=== PATIENT | male | born 1990 | race Two or more races ===

== ENCOUNTER 2017-12-14 08:38 | Inpatient (IN) | payer MEDICAID ==
[~2017-12-14] VITALS: Ht 162.6 cm; Wt 61.1 kg
[~2017-12-14 08:38] MED LIST: AML5T PO; ASPI81CH43 PO; HYD25T PO; LABE200T18 PO; OME20GT PO; SEVE800T PO; WARF2TAB55 PO
[2017-12-14] MEDS ORDERED: ONDANSETRON HCL 4 MG/2 ML VIAL IV ONE ×2 (09:30→10:15)
[2017-12-14] MEDS ORDERED: cloNIDine HCL 0.1 MG TAB PO ONE (09:30)
[2017-12-14 09:40] LABS: Urine Bacteria NONE SEEN /hpf (None Seen); Urine Blood 1+ /uL (Negative); Urine WBC 1 /hpf (0 - 3)
[2017-12-14 09:41] LABS: Basophils # (auto) 0.1 uL; Basophils % (auto) 0.8 % (0.0-2.0); Eosinophils # (auto) 0.1 uL; Eosinophils % (auto) 1.2 % (0.0-7.0); Hematocrit 45.6 % (41.0-53.0); Hemoglobin 15.2 g/dL (13.5-17.5); Lymphocytes # (auto) 1.8 uL; Lymphocytes % (auto) 17.1 % (10.0-50.0); Mean Corpuscular Hgb Conc. 33.4 g/dL (32.0-36.0); Monocytes # (auto) 0.6 uL; Monocytes % (auto) 5.6 % (0.0-12.0); Neutrophils % (auto) 75.3 % (37.0-80.0); Nucleated Red Blood Cells % 0.1 %; Platelet Count (auto) 174 10^3/uL (140-450); Red Blood Cells 5.24 10^6/uL (4.5-5.90); Red Cell Distribution Width 14.7 % (11.8-14.3); White Blood Cell 10.6 10^3/uL (4.4-10.8)
[2017-12-14] MEDS: PANTOPRAZOLE 40 MG/10 ML VIAL IV STA ×2 (09:43→11:08)
[2017-12-14 10:02] LABS: BUN/Creatinine Ratio 13.5; Bilirubin, Total 0.4 mg/dL (0.2-1.0); Calcium 7.9 mg/dL (8.5-10.1); Potassium 4.4 mmol/L (3.5-5.1); Total Protein 6.6 g/dL (6.4-8.2)
[2017-12-14 10:14] LABS: INR 0.93 (0.9-1.15); Partial Thromboplastin Time 27.1 sec (22.64-33.71); Prothrombin Time 10.1 sec (9.37-12.3)
[2017-12-14] MEDS ORDERED: MORPHINE SULFATE 4 MG/ML SYR/VIAL IV ONE (10:15)
[2017-12-14 10:26] LABS: Magnesium 2.2 mg/dL (1.6-2.6)
[2017-12-14] MEDS ORDERED: hydrALAZINE HCL 20 MG/ML VL IV ONE (10:30)
[2017-12-14] MEDS ORDERED: OMEP20CA74 PO (10:47)
[2017-12-14] MEDS ORDERED: ATO40T PO (10:47)
[2017-12-14] MEDS ORDERED: CALCTAB25 PO (10:47)
[2017-12-14] MEDS ORDERED: CAR125T PO (10:47)
[2017-12-14] MEDS ORDERED: WARF4TAB33 PO (10:47)
[2017-12-14] MEDS ORDERED: MORPHINE SULFATE 4 MG/ML SYR/VIAL IV PRN (11:00)
[2017-12-14] MEDS ORDERED: cloNIDine HCL 0.1 MG TAB PO PRN (11:00)
[2017-12-14] MEDS ORDERED: hydrALAZINE HCL 20 MG/ML VL IV PRN (11:00)
[2017-12-14] MEDS ORDERED: PANTOPRAZOLE 40 MG/10 ML VIAL IV ONE (11:30)
[2017-12-14] MEDS ORDERED: CALCIUM W/VIT D (600MG/400IU) TAB PO ONE (11:30)
[2017-12-14] MEDS ORDERED: CARVEDILOL 12.5 MG TAB PO ONE (11:30)
[2017-12-14] MEDS: LABETALOL HCL 200 MG TAB PO SCH ×2 (12:30→22:17)
[2017-12-14] MEDS: ONDANSETRON HCL 4 MG/2 ML VIAL IV PRN (14:43)
[2017-12-14] MEDS ORDERED: WARFARIN SODIUM 2.5 MG TAB PO ONE (17:00)
[2017-12-14 17:12] VITALS: BP 149/79
[2017-12-14] MEDS: ACETAMINOPHEN 500 MG TAB PO PRN (18:07)
[2017-12-14 21:31] VITALS: BP 146/82
[2017-12-14] MEDS: ATORVASTATIN 20 MG TAB PO SCH (22:16)
[2017-12-14] MEDS: PANTOPRAZOLE 40 MG/10 ML VIAL IV SCH (22:16)
[2017-12-14] MEDS: CARVEDILOL 12.5 MG TAB PO SCH (22:18)
[2017-12-15] MEDS ORDERED: HYDROcodone-ACET 5/325MG TAB PO ONE (00:15)
[2017-12-15] MEDS: ACETAMINOPHEN 500 MG TAB PO PRN (00:22)
[2017-12-15] MEDS: ONDANSETRON HCL 4 MG/2 ML VIAL IV PRN (00:22)
[2017-12-15 04:35] VITALS: BP 146/85
[2017-12-15 06:08] LABS: Basophils # (auto) 0 uL; Basophils % (auto) 0.3 % (0.0-2.0); Eosinophils # (auto) 0 uL; Eosinophils % (auto) 0.2 % (0.0-7.0); Hematocrit 40.3 % (41.0-53.0); Hemoglobin 13.3 g/dL (13.5-17.5); Lymphocytes # (auto) 1.5 uL; Lymphocytes % (auto) 14.2 % (10.0-50.0); Mean Corpuscular Hemoglobin 28.9 pg (28.0-32.0); Mean Corpuscular Hgb Conc. 33.1 g/dL (32.0-36.0); Mean Corpuscular Volume 87.4 fL (80.0-100.0); Monocytes # (auto) 0.4 uL; Monocytes % (auto) 3.9 % (0.0-12.0); Neutrophils # (auto) 8.6 uL; Neutrophils % (auto) 81.4 % (37.0-80.0); Platelet Count (auto) 153 10^3/uL (140-450); Red Blood Cells 4.61 10^6/uL (4.5-5.90); Red Cell Distribution Width 14.7 % (11.8-14.3); White Blood Cell 10.6 10^3/uL (4.4-10.8)
[2017-12-15] MEDS: LABETALOL HCL 200 MG TAB PO SCH ×3 (06:29→21:23)
[2017-12-15 06:31] LABS: Albumin 2.6 g/dL (3.4-5.0); BUN/Creatinine Ratio 12.6; Bilirubin, Total 0.5 mg/dL (0.2-1.0); Calcium 8.3 mg/dL (8.5-10.1); Magnesium 2.2 mg/dL (1.6-2.6); Phosphorus 5.1 mg/dL (2.5-4.90); Total Protein 5.6 g/dL (6.4-8.2)
[2017-12-15 08:44] VITALS: BP 137/72
[2017-12-15] MEDS: PANTOPRAZOLE 40 MG/10 ML VIAL IV SCH (09:52)
[2017-12-15] MEDS: CALCIUM W/VIT D (600MG/400IU) TAB PO SCH (09:53)
[2017-12-15] MEDS: CARVEDILOL 12.5 MG TAB PO SCH ×2 (09:53→21:28)
[2017-12-15] MEDS ORDERED: PANTOPRAZOLE 40 MG/10 ML VIAL IV SCH (10:00)
[2017-12-15] MEDS ORDERED: LIDOCAINE VISCOUS 2% 15ML UD ONE (10:33)
[2017-12-15] MEDS ORDERED: fentaNYL CITRATE 100 MCG/2 ML VL ONE (10:34)
[2017-12-15] MEDS ORDERED: MIDAZOLAM HCL 5 MG/ML-1ML VIAL ONE (10:34)
[2017-12-15] MEDS ORDERED: diphenhdrAMINE HCL 50 MG/1 ML VL ONE (10:34)
[2017-12-15 16:39] VITALS: BP 150/81
[2017-12-15] MEDS: ATORVASTATIN 20 MG TAB PO SCH (21:27)
[2017-12-15] MEDS: PANTOPRAZOLE 40 MG TAB PO SCH (21:27)
[2017-12-15 22:00] VITALS: BP 149/86
[2017-12-16 01:00] VITALS: BP 136/75
[2017-12-16] MEDS: LABETALOL HCL 200 MG TAB PO SCH ×3 (05:29→22:04)
[2017-12-16 05:44] LABS: Hematocrit 38.1 % (41.0-53.0); Hemoglobin 12.6 g/dL (13.5-17.5)
[2017-12-16 05:55] VITALS: BP 152/81
[2017-12-16 09:00] VITALS: BP 144/85
[2017-12-16] MEDS: PANTOPRAZOLE 40 MG TAB PO SCH ×2 (10:06→22:04)
[2017-12-16] MEDS: amLODIPine BESYLATE 5 MG TAB PO SCH (10:06)
[2017-12-16] MEDS: CALCIUM W/VIT D (600MG/400IU) TAB PO SCH (10:06)
[2017-12-16] MEDS: ACETAMINOPHEN 500 MG TAB PO PRN (12:15)
[2017-12-16 13:00] VITALS: BP 152/93
[2017-12-16 13:45] LABS: % Iron Saturation 20.7 % (20-55)
[2017-12-16] MEDS: ONDANSETRON HCL 4 MG/2 ML VIAL IV PRN (13:52)
[2017-12-16 17:00] VITALS: BP 157/90
[2017-12-16] MEDS ORDERED: CLINDAMYCIN HCL 150 MG CAP PO SCH (22:00)
[2017-12-16] MEDS: AMOXICILLIN TRIHYDRATE 250 MG CAP PO SCH (22:01)
[2017-12-16] MEDS: CLARITHROMYCIN 500 MG TAB PO SCH (22:01)
[2017-12-16] MEDS: ATORVASTATIN 20 MG TAB PO SCH (22:01)
[2017-12-16 22:18] VITALS: BP 150/67
[2017-12-17 05:06] VITALS: BP 149/74
[2017-12-17] MEDS: LABETALOL HCL 200 MG TAB PO SCH (05:40)
[2017-12-17 05:49] LABS: Basophils # (auto) 0 uL; Basophils % (auto) 0.5 % (0.0-2.0); Eosinophils # (auto) 0.1 uL; Eosinophils % (auto) 0.8 % (0.0-7.0); Hematocrit 38.4 % (41.0-53.0); Hemoglobin 12.8 g/dL (13.5-17.5); Lymphocytes # (auto) 1.9 uL; Mean Corpuscular Hemoglobin 29.2 pg (28.0-32.0); Mean Corpuscular Hgb Conc. 33.4 g/dL (32.0-36.0); Mean Corpuscular Volume 87.4 fL (80.0-100.0); Monocytes # (auto) 0.4 uL; Monocytes % (auto) 5.6 % (0.0-12.0); Neutrophils # (auto) 4.6 uL; Neutrophils % (auto) 66.1 % (37.0-80.0); Platelet Count (auto) 161 10^3/uL (140-450); Red Cell Distribution Width 14.5 % (11.8-14.3)
[2017-12-17 06:02] LABS: Albumin 2.7 g/dL (3.4-5.0); BUN/Creatinine Ratio 14.5; Calcium 8.4 mg/dL (8.5-10.1); Potassium 3.7 mmol/L (3.5-5.1)
[2017-12-17 06:04] LABS: Bilirubin, Total 0.5 mg/dL (0.2-1.0); Total Protein 5.5 g/dL (6.4-8.2)
[2017-12-17 08:04] VITALS: BP 138/76
[2017-12-17] MEDS: PANTOPRAZOLE 40 MG TAB PO SCH (09:44)
[2017-12-17] MEDS: CALCIUM W/VIT D (600MG/400IU) TAB PO SCH (09:44)
[2017-12-17] MEDS: AMOXICILLIN TRIHYDRATE 250 MG CAP PO SCH (09:44)
[2017-12-17] MEDS: amLODIPine BESYLATE 5 MG TAB PO SCH (09:45)
[2017-12-17] MEDS: CLARITHROMYCIN 500 MG TAB PO SCH (09:55)
[2017-12-17 11:50] VITALS: BP 158/90
[2017-12-17 12:50] LABS: Protein, Urine 115.2 mg/dL (0.0-11.9)
== END 2017-12-17 14:40 | disposition home or self-care (01) | DRG 470 ==
LOC: ER 08:38 → OVERFLOW 08:39 → CENTRAL 15:46
PROVIDERS: ADMIT Internal Medicine; ATTEND Internal Medicine Pulmonary Disease
PROC: 0DB68ZX Excision of Stomach, Via Natural or Artificial Opening Endoscopic, Diagnostic (ICD-10-PCS; principal; 2017-12-15 12:20)
DX: I12.9 Hypertensive chronic kidney disease with stage 1 through stage 4 chronic kidney disease, or unspecified chronic kidney disease (principal); N17.0 Acute kidney failure with tubular necrosis; K29.61 Other gastritis with bleeding; E44.0 Moderate protein-calorie malnutrition; B96.81 Helicobacter pylori [H. pylori] as the cause of diseases classified elsewhere; N18.4 Chronic kidney disease, stage 4 (severe); D63.8 Anemia in other chronic diseases classified elsewhere; E78.5 Hyperlipidemia, unspecified; I05.9 Rheumatic mitral valve disease, unspecified; K21.9 Gastro-esophageal reflux disease without esophagitis; Z90.49 Acquired absence of other specified parts of digestive tract; Z79.899 Other long term (current) drug therapy; Z86.73 Personal history of transient ischemic attack (TIA), and cerebral infarction without residual deficits; Z68.23 Body mass index [BMI] 23.0-23.9, adult
CPT/HCPCS: 36415; 43239; 71045; 71250; 74176; 76775; 80053; 80061; 81001; 82150; 82306; 82570; 82728; 83540; 83550; 83690; 83735; 83970; 84100; 84156; 84300; 85014; 85018; 85025; 85610; 85652; 85730; 86850; 86900; 86901; 93005; 93306; 94761; 96374; 96375; 96376; C9113; J2250; J2405

== ENCOUNTER 2018-02-09 13:54 | Emergency (ER) | payer MEDICAID ==
[~2018-02-09] VITALS: Ht 157.5 cm; Wt 63.5 kg
[~2018-02-09 13:54] MED LIST changes: -AML5T PO; +AMOX250C3 PO; -ASPI81CH43 PO; +ATO40T PO; +ATOR40TA52 PO; +CALC667C PO; +CALCTAB25 PO; +CARV25TA55 PO; +CLAR500T PO; -HYD25T PO; +MIN25T PO; +NIFE90TA30 PO; -OME20GT PO; +OMEP20CA74 PO; +OMEP20TA PO; +PANT40TA2 PO; -SEVE800T PO; -WARF2TAB55 PO; +WARF6TAB20 PO
[2018-02-09 14:15] VITALS: BP 118/71
== END 2018-02-09 16:42 | disposition home or self-care (01) ==
LOC: ER 13:54
DX: R22.0 Localized swelling, mass and lump, head (principal); I12.0 Hypertensive chronic kidney disease with stage 5 chronic kidney disease or end stage renal disease; N18.6 End stage renal disease; Z86.73 Personal history of transient ischemic attack (TIA), and cerebral infarction without residual deficits; Z79.899 Other long term (current) drug therapy

== ENCOUNTER 2018-06-06 11:54 | Inpatient (IN) | payer MEDICAID ==
[~2018-06-06] VITALS: Ht 162.6 cm; Wt 67.8 kg
[2018-06-06] MEDS ORDERED: PHENYLEPHRINE HCL 0.5 % NASAL SPRAY 15ML ONE (13:15)
[2018-06-06] MEDS ORDERED: COCAINE HCL 4% TOP SOL 4ML TOP ONE (13:15)
[2018-06-06] MEDS ORDERED: SILVER NITRATE-POTAS NITRA STICK TOP ONE (13:15)
[2018-06-06 13:23] LABS: Basophils # (auto) 0.1 uL; Basophils % (auto) 0.8 % (0.0-2.0); Eosinophils # (auto) 0 uL; Eosinophils % (auto) 0.2 % (0.0-7.0); Hematocrit 26.4 % (41.0-53.0); Hemoglobin 8.7 g/dL (13.5-17.5); Lymphocytes % (auto) 9.2 % (10.0-50.0); Mean Corpuscular Hgb Conc. 33.1 g/dL (32.0-36.0); Mean Corpuscular Volume 84.8 fL (80.0-100.0); Monocytes # (auto) 0.5 uL; Monocytes % (auto) 4.1 % (0.0-12.0); Neutrophils # (auto) 9.5 uL; Neutrophils % (auto) 85.7 % (37.0-80.0); Nucleated Red Blood Cells % 0.1 %; Platelet Count (auto) 241 10^3/uL (140-450); Red Blood Cells 3.12 10^6/uL (4.5-5.90); Red Cell Distribution Width 14.9 % (11.8-14.3); White Blood Cell 11.1 10^3/uL (4.4-10.8)
[2018-06-06] MEDS ORDERED: cloNIDine HCL 0.1 MG TAB ONE (13:36)
[2018-06-06] MEDS ORDERED: cloNIDine HCL 0.1 MG TAB PO ONE (13:45)
[2018-06-06 13:57] LABS: Albumin 2.7 g/dL (3.4-5.0); Calcium 7.3 mg/dL (8.5-10.1); Potassium 3.7 mmol/L (3.5-5.1)
[2018-06-06 14:01] LABS: BUN/Creatinine Ratio 13.7; Bilirubin, Total 0.9 mg/dL (0.2-1.0); Total Protein 5.4 g/dL (6.4-8.2)
[2018-06-06 14:06] LABS: INR 3.4 (0.9-1.15); Partial Thromboplastin Time 38.4 sec (23.78-33.04); Prothrombin Time 33.9 sec (9.27-12.13)
[2018-06-06] MEDS: cloNIDine HCL 0.1 MG TAB PO ONE ×2 (14:47→15:07)
[2018-06-06] MEDS ORDERED: DEXTROSE (50%) 50ML SYRG IV PRN (15:45)
[2018-06-06] MEDS ORDERED: cefTRIAXone 1GM/10ml IVPUSH 10 ML IV ONE (15:45)
[2018-06-06] MEDS ORDERED: TEMAZEPAM 15 MG CAP PO PRN (16:00)
[2018-06-06] MEDS ORDERED: ONDANSETRON HCL 4 MG/2 ML VIAL IV PRN (16:00)
[2018-06-06] MEDS ORDERED: DOCUSATE SOD 100 MG CAP PO PRN (16:00)
[2018-06-06] MEDS ORDERED: MORPHINE SULF INJ 2 MG/ML SYRINGE 1ML IV PRN ×2 (16:00)
[2018-06-06] MEDS ORDERED: NITROGLYCERIN 0.4 MG SL TAB SL PRN (16:00)
[2018-06-06] MEDS ORDERED: ACETAMINOPHEN 325 MG TAB PO PRN (16:00)
[2018-06-06 16:12] LABS: Basophils # (auto) 0.1 uL; Eosinophils # (auto) 0 uL; Eosinophils % (auto) 0.1 % (0.0-7.0); Mean Corpuscular Volume 85.3 fL (80.0-100.0); Monocytes # (auto) 0.3 uL; Neutrophils # (auto) 7.7 uL; Platelet Count (auto) 199 10^3/uL (140-450); White Blood Cell 8.8 10^3/uL (4.4-10.8)
[2018-06-06 16:15] LABS: Basophils % (auto) 0.7 % (0.0-2.0); Hematocrit 21.8 % (41.0-53.0); Hemoglobin 7.3 g/dL (13.5-17.5); Lymphocytes # (auto) 0.7 uL; Lymphocytes % (auto) 8.1 % (10.0-50.0); Mean Corpuscular Hemoglobin 28.7 pg (28.0-32.0); Mean Corpuscular Hgb Conc. 33.7 g/dL (32.0-36.0); Monocytes % (auto) 3.4 % (0.0-12.0); Neutrophils % (auto) 87.7 % (37.0-80.0); Red Blood Cells 2.56 10^6/uL (4.5-5.90); Red Cell Distribution Width 14.7 % (11.8-14.3)
[2018-06-06] MEDS: InsuLIN REG 1unit/0.01ml Soln (100units/ml) SC SCH ×2 (17:00→22:00)
[2018-06-06] MEDS: ACCU-CHEK COMFORT CURVE STRIP VI SCH ×2 (17:13→22:04)
[2018-06-06] MEDS: CALCIUM ACETATE 667 MG CAP PO SCH (18:00)
[2018-06-06] MEDS: Glucerna Carbsteady SHAKE Vanilla 8oz PO SCH (18:42)
[2018-06-06 18:55] LABS: Urine Bacteria NONE SEEN /hpf (None Seen); Urine Blood 1+ /uL (Negative); Urine Specific Gravity 1.011 (1.001-1.035); Urine WBC 3 /hpf (0 - 3)
[2018-06-06 19:59] LABS: % Iron Saturation 14.2 % (20-55)
[2018-06-06 20:15] LABS: Protein, Urine 230.3 mg/dL (0.0-11.9)
[2018-06-06 21:00] VITALS: BP 168/94
[2018-06-06 22:00] VITALS: BP 168/94
[2018-06-06 22:16] LABS: Basophils # (auto) 0 uL; Eosinophils # (auto) 0 uL; Eosinophils % (auto) 0.1 % (0.0-7.0); Hematocrit 19.2 % (41.0-53.0); Lymphocytes # (auto) 1.6 uL; Monocytes # (auto) 0.4 uL
[2018-06-06 22:17] LABS: Basophils % (auto) 0.6 % (0.0-2.0); Lymphocytes % (auto) 18.5 % (10.0-50.0); Mean Corpuscular Hemoglobin 28.2 pg (28.0-32.0); Mean Corpuscular Hgb Conc. 32.7 g/dL (32.0-36.0); Mean Corpuscular Volume 86.1 fL (80.0-100.0); Monocytes % (auto) 4.9 % (0.0-12.0); Neutrophils # (auto) 6.4 uL; Neutrophils % (auto) 75.9 % (37.0-80.0); Nucleated Red Blood Cells % 0.2 %; Platelet Count (auto) 191 10^3/uL (140-450); Red Blood Cells 2.23 10^6/uL (4.5-5.90); White Blood Cell 8.4 10^3/uL (4.4-10.8)
[2018-06-06] MEDS: SODIUM CHLOR 0.9% PF (SALINE LOCK) 10ML VIAL/SYR IV SCH (22:24)
[2018-06-06] MEDS: CARVEDILOL 12.5 MG TAB PO SCH (22:25)
[2018-06-06] MEDS: ATORVASTATIN 20 MG TAB PO SCH (22:25)
[2018-06-06] MEDS: MINOXIDIL 2.5 MG TAB PO SCH (22:26)
[2018-06-06] MEDS: ASCORBIC ACID 500 MG TAB PO SCH (22:26)
[2018-06-06] MEDS: LABETALOL HCL 200 MG TAB PO SCH (22:26)
[2018-06-06 22:37] LABS: Hemoglobin 6.3 g/dL (13.5-17.5)
[2018-06-07] MEDS ORDERED: ASPI81CH43 PO (00:50)
[2018-06-07] MEDS ORDERED: FERR-20 PO (01:01)
[2018-06-07] MEDS ORDERED: FURO20TA3 PO (01:05)
[2018-06-07] MEDS ORDERED: HYDR-4296 PO (01:05)
[2018-06-07] MEDS ORDERED: CHOL20007 PO (01:05)
[2018-06-07 05:30] VITALS: BP 101/63
[2018-06-07] MEDS: LABETALOL HCL 200 MG TAB PO SCH (06:00)
[2018-06-07] MEDS: ACCU-CHEK COMFORT CURVE STRIP VI SCH ×4 (06:29→22:17)
[2018-06-07] MEDS: SODIUM CHLOR 0.9% PF (SALINE LOCK) 10ML VIAL/SYR IV SCH ×3 (06:35→22:17)
[2018-06-07] MEDS: InsuLIN REG 1unit/0.01ml Soln (100units/ml) SC SCH ×4 (06:36→22:00)
[2018-06-07 06:56] LABS: Basophils # (auto) 0 uL; Eosinophils # (auto) 0 uL; Hematocrit 17.3 % (41.0-53.0); Lymphocytes # (auto) 0.9 uL; Red Blood Cells 2.01 10^6/uL (4.5-5.90); Red Cell Distribution Width 15.1 % (11.8-14.3)
[2018-06-07 06:57] LABS: Basophils % (auto) 0.3 % (0.0-2.0); Lymphocytes % (auto) 6.9 % (10.0-50.0); Mean Corpuscular Hemoglobin 28.2 pg (28.0-32.0); Mean Corpuscular Hgb Conc. 32.7 g/dL (32.0-36.0); Mean Corpuscular Volume 86.2 fL (80.0-100.0); Monocytes # (auto) 0.7 uL; Monocytes % (auto) 5.3 % (0.0-12.0); Neutrophils % (auto) 87.5 % (37.0-80.0); Platelet Count (auto) 152 10^3/uL (140-450); White Blood Cell 12.5 10^3/uL (4.4-10.8)
[2018-06-07 07:02] LABS: Hemoglobin 5.7 g/dL (13.5-17.5)
[2018-06-07 07:08] LABS: Prothrombin Time 50.5 sec (9.27-12.13)
[2018-06-07 07:11] LABS: INR 5.18 (0.9-1.15)
[2018-06-07 07:20] LABS: Albumin 2.3 g/dL (3.4-5.0); BUN/Creatinine Ratio 16.8; Bilirubin, Total 0.5 mg/dL (0.2-1.0); Calcium 7.3 mg/dL (8.5-10.1); Total Protein 4.5 g/dL (6.4-8.2)
[2018-06-07 08:26] VITALS: BP 129/76
[2018-06-07] MEDS: MINOXIDIL 2.5 MG TAB PO SCH (10:00)
[2018-06-07] MEDS ORDERED: NIFEdipine ER 30 MG TAB PO SCH (10:00)
[2018-06-07] MEDS ORDERED: CALCIUM W/VIT D (600MG/400IU) TAB PO SCH (10:00)
[2018-06-07] MEDS ORDERED: SODIUM CHL 0.9% 1000 ML BAG XX ONE (10:00)
[2018-06-07] MEDS: CARVEDILOL 12.5 MG TAB PO SCH (10:00)
[2018-06-07] MEDS: ZINC SULFATE 220mg CAP or TAB PO SCH (10:12)
[2018-06-07] MEDS: MULTIPLE VITAMIN TAB PO SCH (10:12)
[2018-06-07] MEDS: PANTOPRAZOLE 40 MG TAB PO SCH (10:12)
[2018-06-07] MEDS: cefTRIAXone 1GM/10ml IVPUSH 10 ML IV SCH (10:15)
[2018-06-07] MEDS: CALCIUM ACETATE 667 MG CAP PO SCH ×3 (10:28→17:54)
[2018-06-07] MEDS: Glucerna Carbsteady SHAKE Vanilla 8oz PO SCH (10:28)
[2018-06-07] MEDS: ASCORBIC ACID 500 MG TAB PO SCH ×2 (10:28→22:15)
[2018-06-07] MEDS: EPOETIN ALFA 10,000 UNIT/1 ML VIAL IV ONE ×2 (10:32→19:02)
[2018-06-07 11:39] VITALS: BP 102/50
[2018-06-07 13:23] LABS: Basophils # (auto) 0 uL; Basophils % (auto) 0.1 % (0.0-2.0); Eosinophils # (auto) 0 uL; Hemoglobin 7.9 g/dL (13.5-17.5); Lymphocytes # (auto) 0.9 uL; Monocytes # (auto) 0.4 uL
[2018-06-07 13:26] LABS: Hematocrit 22.8 % (41.0-53.0); Lymphocytes % (auto) 8.6 % (10.0-50.0); Mean Corpuscular Hemoglobin 29.3 pg (28.0-32.0); Mean Corpuscular Hgb Conc. 34.6 g/dL (32.0-36.0); Mean Corpuscular Volume 84.8 fL (80.0-100.0); Monocytes % (auto) 3.6 % (0.0-12.0); Neutrophils # (auto) 9.4 uL; Neutrophils % (auto) 87.7 % (37.0-80.0); Platelet Count (auto) 143 10^3/uL (140-450); Red Cell Distribution Width 14.6 % (11.8-14.3); White Blood Cell 10.8 10^3/uL (4.4-10.8)
[2018-06-07 17:23] VITALS: BP 140/86
[2018-06-07 22:04] VITALS: BP 130/72
[2018-06-07] MEDS: ATORVASTATIN 20 MG TAB PO SCH (22:15)
[2018-06-08 04:36] VITALS: BP 156/82
[2018-06-08] MEDS: HYDROcodone-ACET 5/325MG TAB PO PRN (04:37)
[2018-06-08 06:12] LABS: INR 3.33 (0.9-1.15); Prothrombin Time 33.3 sec (9.27-12.13)
[2018-06-08 06:14] LABS: Basophils # (auto) 0.1 uL; Eosinophils # (auto) 0.1 uL; Mean Corpuscular Volume 86.2 fL (80.0-100.0); Monocytes # (auto) 0.8 uL
[2018-06-08 06:17] LABS: Basophils % (auto) 0.5 % (0.0-2.0); Eosinophils % (auto) 1.1 % (0.0-7.0); Hematocrit 23.1 % (41.0-53.0); Hemoglobin 7.9 g/dL (13.5-17.5); Lymphocytes # (auto) 2.7 uL; Mean Corpuscular Hemoglobin 29.4 pg (28.0-32.0); Mean Corpuscular Hgb Conc. 34.1 g/dL (32.0-36.0); Monocytes % (auto) 7.2 % (0.0-12.0); Neutrophils # (auto) 7.2 uL; Neutrophils % (auto) 66.2 % (37.0-80.0); Red Blood Cells 2.68 10^6/uL (4.5-5.90); Red Cell Distribution Width 15.2 % (11.8-14.3); White Blood Cell 10.8 10^3/uL (4.4-10.8)
[2018-06-08 06:18] LABS: Platelet Count (auto) 165 10^3/uL (140-450)
[2018-06-08 06:23] LABS: Albumin 2.3 g/dL (3.4-5.0); BUN/Creatinine Ratio 12.5; Calcium 7.4 mg/dL (8.5-10.1); Potassium 3.3 mmol/L (3.5-5.1)
[2018-06-08] MEDS: SODIUM CHLOR 0.9% PF (SALINE LOCK) 10ML VIAL/SYR IV SCH ×3 (06:25→21:58)
[2018-06-08 06:34] LABS: Bilirubin, Total 0.4 mg/dL (0.2-1.0); Total Protein 4.7 g/dL (6.4-8.2)
[2018-06-08] MEDS: ACCU-CHEK COMFORT CURVE STRIP VI SCH ×4 (06:36→21:58)
[2018-06-08] MEDS: InsuLIN REG 1unit/0.01ml Soln (100units/ml) SC SCH ×4 (06:36→21:57)
[2018-06-08 08:11] VITALS: BP 138/78
[2018-06-08] MEDS: ZINC SULFATE 220mg CAP or TAB PO SCH (08:42)
[2018-06-08] MEDS: MULTIPLE VITAMIN TAB PO SCH (08:42)
[2018-06-08] MEDS: CALCIUM ACETATE 667 MG CAP PO SCH ×2 (08:42→12:53)
[2018-06-08] MEDS: ASCORBIC ACID 500 MG TAB PO SCH ×2 (08:42→21:54)
[2018-06-08] MEDS: cefTRIAXone 1GM/10ml IVPUSH 10 ML IV SCH (08:43)
[2018-06-08] MEDS: PANTOPRAZOLE 40 MG TAB PO SCH (08:43)
[2018-06-08] MEDS: NIFEdipine ER 30 MG TAB PO SCH (08:43)
[2018-06-08] MEDS ORDERED: SODIUM CHL 0.9% 1000 ML BAG XX ONE (11:45)
[2018-06-08] MEDS ORDERED: EPOETIN ALFA 10,000 UNIT/1 ML VIAL IV ONE (11:45)
[2018-06-08 12:00] VITALS: BP 164/86
[2018-06-08] MEDS: SODIUM FERR GLUC 62.5MG/5ML 125 MG in SODIUM CHL 0.9% 100 ML IV SCH ×2 (14:30→14:44)
[2018-06-08 15:35] LABS: Urine Bacteria FEW /hpf (None Seen); Urine Blood Negative /uL (Negative); Urine Specific Gravity 1.012 (1.001-1.035); Urine WBC 1 /hpf (0 - 3)
[2018-06-08 16:52] VITALS: BP 160/69
[2018-06-08] MEDS ORDERED: WARFARIN SODIUM 2.5 MG TAB PO ONE (17:00)
[2018-06-08] MEDS: ATORVASTATIN 20 MG TAB PO SCH (21:54)
[2018-06-08 22:00] VITALS: BP 160/98
[2018-06-09 05:00] VITALS: BP 168/87
[2018-06-09] MEDS: LABETALOL HCL 5 MG/ML ML 20ML VIAL IV PRN ×2 (05:04→17:16)
[2018-06-09] MEDS: SODIUM CHLOR 0.9% PF (SALINE LOCK) 10ML VIAL/SYR IV SCH ×3 (06:11→22:12)
[2018-06-09] MEDS ORDERED: METOPROLOL TARTRATE 1MG/1ML-5ML VIAL IV ONE (06:30)
[2018-06-09 06:43] LABS: INR 1.41 (0.9-1.15); Prothrombin Time 14.8 sec (9.27-12.13)
[2018-06-09] MEDS: ACCU-CHEK COMFORT CURVE STRIP VI SCH ×4 (07:00→22:12)
[2018-06-09] MEDS: InsuLIN REG 1unit/0.01ml Soln (100units/ml) SC SCH ×4 (07:00→22:00)
[2018-06-09] MEDS: CALCIUM ACETATE 667 MG CAP PO SCH ×4 (08:00→17:15)
[2018-06-09 08:26] VITALS: BP 165/87
[2018-06-09] MEDS: cefTRIAXone 1GM/10ml IVPUSH 10 ML IV SCH (08:58)
[2018-06-09] MEDS: ASCORBIC ACID 500 MG TAB PO SCH ×2 (09:09→22:05)
[2018-06-09] MEDS: PANTOPRAZOLE 40 MG TAB PO SCH (09:09)
[2018-06-09] MEDS: MULTIPLE VITAMIN TAB PO SCH (09:09)
[2018-06-09] MEDS: ZINC SULFATE 220mg CAP or TAB PO SCH (09:09)
[2018-06-09 09:57] LABS: Hepatitis B Surface Antigen Negative (Negative); Hepatitis C Antibody Negative (Negative)
[2018-06-09 12:38] VITALS: BP 176/99
[2018-06-09] MEDS: SODIUM FERR GLUC 62.5MG/5ML 125 MG in SODIUM CHL 0.9% 100 ML IV SCH (13:00)
[2018-06-09] MEDS: NIFEdipine ER 30 MG TAB PO SCH (13:00)
[2018-06-09] MEDS: HYDROcodone-ACET 5/325MG TAB PO PRN (16:23)
[2018-06-09 16:58] VITALS: BP 164/94
[2018-06-09 21:30] VITALS: BP 160/84
[2018-06-09] MEDS: hydrALAZINE HCL 25 MG TAB PO SCH (22:05)
[2018-06-09] MEDS: ATORVASTATIN 20 MG TAB PO SCH (22:05)
[2018-06-09] MEDS: LABETALOL HCL 200 MG TAB PO SCH (22:06)
[2018-06-10 05:00] VITALS: BP 148/78
[2018-06-10] MEDS: SODIUM CHLOR 0.9% PF (SALINE LOCK) 10ML VIAL/SYR IV SCH ×3 (06:00→22:00)
[2018-06-10] MEDS: ACCU-CHEK COMFORT CURVE STRIP VI SCH ×4 (06:41→22:00)
[2018-06-10] MEDS: InsuLIN REG 1unit/0.01ml Soln (100units/ml) SC SCH ×4 (06:41→22:00)
[2018-06-10 08:16] VITALS: BP 168/96
[2018-06-10] MEDS: CALCIUM ACETATE 667 MG CAP PO SCH ×3 (08:54→18:12)
[2018-06-10] MEDS: cefTRIAXone 1GM/10ml IVPUSH 10 ML IV SCH (08:54)
[2018-06-10] MEDS: ASCORBIC ACID 500 MG TAB PO SCH ×2 (09:26→23:14)
[2018-06-10] MEDS: MULTIPLE VITAMIN TAB PO SCH (09:26)
[2018-06-10] MEDS: NIFEdipine ER 30 MG TAB PO SCH (09:28)
[2018-06-10] MEDS: hydrALAZINE HCL 25 MG TAB PO SCH (09:29)
[2018-06-10] MEDS: LABETALOL HCL 200 MG TAB PO SCH ×2 (09:29→23:15)
[2018-06-10] MEDS: PANTOPRAZOLE 40 MG TAB PO SCH (09:30)
[2018-06-10] MEDS: ZINC SULFATE 220mg CAP or TAB PO SCH (09:30)
[2018-06-10] MEDS ORDERED: SODIUM CHL 0.9% 1000 ML BAG XX ONE (10:30)
[2018-06-10 12:30] VITALS: BP 147/80
[2018-06-10 17:03] VITALS: BP 143/66
[2018-06-10 21:19] VITALS: BP 156/81
[2018-06-10] MEDS: ATORVASTATIN 20 MG TAB PO SCH (23:15)
[2018-06-11] MEDS: hydrALAZINE HCL 25 MG TAB PO SCH ×3 (00:49→21:58)
[2018-06-11 05:26] VITALS: BP 154/75
[2018-06-11] MEDS: SODIUM CHLOR 0.9% PF (SALINE LOCK) 10ML VIAL/SYR IV SCH ×3 (06:28→22:00)
[2018-06-11] MEDS: ACCU-CHEK COMFORT CURVE STRIP VI SCH ×4 (06:29→22:00)
[2018-06-11] MEDS: InsuLIN REG 1unit/0.01ml Soln (100units/ml) SC SCH ×4 (06:29→22:00)
[2018-06-11 08:43] VITALS: BP 157/86
[2018-06-11] MEDS ORDERED: HYDROcodone-ACET 10/325MG TAB PO ONE (09:15)
[2018-06-11] MEDS: CALCIUM ACETATE 667 MG CAP PO SCH ×3 (09:36→18:00)
[2018-06-11] MEDS: ZINC SULFATE 220mg CAP or TAB PO SCH (10:00)
[2018-06-11] MEDS: NIFEdipine ER 30 MG TAB PO SCH (10:00)
[2018-06-11] MEDS: MULTIPLE VITAMIN TAB PO SCH (10:00)
[2018-06-11] MEDS: ASCORBIC ACID 500 MG TAB PO SCH ×2 (10:00→21:57)
[2018-06-11] MEDS: PANTOPRAZOLE 40 MG TAB PO SCH (10:00)
[2018-06-11] MEDS: LABETALOL HCL 200 MG TAB PO SCH ×2 (10:00→21:57)
[2018-06-11] MEDS ORDERED: EPOETIN ALFA 10,000 UNIT/1 ML VIAL IV ONE (10:30)
[2018-06-11 12:32] VITALS: BP 158/96
[2018-06-11] MEDS: HYDROcodone-ACET 10/325MG TAB PO PRN ×2 (13:03→18:01)
[2018-06-11 16:49] VITALS: BP 192/106
[2018-06-11 19:40] VITALS: BP 195/104
[2018-06-11 21:50] VITALS: BP 165/94
[2018-06-11] MEDS: ATORVASTATIN 20 MG TAB PO SCH (21:57)
[2018-06-11] MEDS: LABETALOL HCL 5 MG/ML ML 20ML VIAL IV PRN (23:15)
[2018-06-12 04:38] VITALS: BP 159/85
[2018-06-12 05:09] LABS: Basophils # (auto) 0.1 uL; Eosinophils # (auto) 0.1 uL; Hemoglobin 7.5 g/dL (13.5-17.5); Mean Corpuscular Hgb Conc. 32.6 g/dL (32.0-36.0); Monocytes # (auto) 0.6 uL; Neutrophils # (auto) 3.9 uL
[2018-06-12 05:11] LABS: Eosinophils % (auto) 1.2 % (0.0-7.0); Hematocrit 22.9 % (41.0-53.0); Lymphocytes # (auto) 1.2 uL; Lymphocytes % (auto) 20.6 % (10.0-50.0); Mean Corpuscular Hemoglobin 29.2 pg (28.0-32.0); Mean Corpuscular Volume 89.6 fL (80.0-100.0); Neutrophils % (auto) 67.2 % (37.0-80.0); Nucleated Red Blood Cells % 0.2 %; Platelet Count (auto) 214 10^3/uL (140-450); Red Blood Cells 2.55 10^6/uL (4.5-5.90); Red Cell Distribution Width 15.4 % (11.8-14.3); White Blood Cell 5.9 10^3/uL (4.4-10.8)
[2018-06-12 05:30] LABS: BUN/Creatinine Ratio 8.3; Calcium 7.8 mg/dL (8.5-10.1); Potassium 4.2 mmol/L (3.5-5.1)
[2018-06-12] MEDS: LABETALOL HCL 5 MG/ML ML 20ML VIAL IV PRN (05:46)
[2018-06-12] MEDS: SODIUM CHLOR 0.9% PF (SALINE LOCK) 10ML VIAL/SYR IV SCH ×3 (06:38→21:49)
[2018-06-12] MEDS: InsuLIN REG 1unit/0.01ml Soln (100units/ml) SC SCH ×4 (06:39→21:45)
[2018-06-12] MEDS: ACCU-CHEK COMFORT CURVE STRIP VI SCH ×4 (06:39→21:49)
[2018-06-12] MEDS: HYDROcodone-ACET 10/325MG TAB PO PRN ×3 (07:37→15:15)
[2018-06-12] MEDS: CALCIUM ACETATE 667 MG CAP PO SCH ×3 (07:44→18:11)
[2018-06-12 08:14] VITALS: BP 159/96
[2018-06-12] MEDS: NIFEdipine ER 30 MG TAB PO SCH (09:30)
[2018-06-12] MEDS: ZINC SULFATE 220mg CAP or TAB PO SCH (09:32)
[2018-06-12] MEDS: PANTOPRAZOLE 40 MG TAB PO SCH (09:32)
[2018-06-12] MEDS: ASCORBIC ACID 500 MG TAB PO SCH ×2 (09:32→21:47)
[2018-06-12] MEDS: LABETALOL HCL 200 MG TAB PO SCH ×2 (09:32→21:48)
[2018-06-12] MEDS: MULTIPLE VITAMIN TAB PO SCH (09:33)
[2018-06-12] MEDS: hydrALAZINE HCL 25 MG TAB PO SCH ×2 (09:33→21:48)
[2018-06-12 12:07] VITALS: BP 173/90
[2018-06-12] MEDS: LOSARTAN POTASSIUM 50 MG TAB PO SCH (15:50)
[2018-06-12 17:29] VITALS: BP 148/71
[2018-06-12 21:24] VITALS: BP 139/63
[2018-06-12] MEDS: ATORVASTATIN 20 MG TAB PO SCH (21:48)
[2018-06-13 04:16] VITALS: BP 144/80
[2018-06-13] MEDS: SODIUM CHLOR 0.9% PF (SALINE LOCK) 10ML VIAL/SYR IV SCH ×2 (06:37→14:04)
[2018-06-13] MEDS: ACCU-CHEK COMFORT CURVE STRIP VI SCH ×2 (06:37→11:30)
[2018-06-13] MEDS: InsuLIN REG 1unit/0.01ml Soln (100units/ml) SC SCH ×2 (06:37→11:30)
[2018-06-13 08:07] VITALS: BP 139/95
[2018-06-13] MEDS: CALCIUM ACETATE 667 MG CAP PO SCH ×2 (08:22→12:00)
[2018-06-13] MEDS: hydrALAZINE HCL 25 MG TAB PO SCH (10:00)
[2018-06-13] MEDS: LABETALOL HCL 200 MG TAB PO SCH (10:00)
[2018-06-13] MEDS: ZINC SULFATE 220mg CAP or TAB PO SCH (10:00)
[2018-06-13] MEDS: NIFEdipine ER 30 MG TAB PO SCH (10:00)
[2018-06-13] MEDS: LOSARTAN POTASSIUM 50 MG TAB PO SCH (10:34)
[2018-06-13] MEDS: PANTOPRAZOLE 40 MG TAB PO SCH (10:34)
[2018-06-13] MEDS: ASCORBIC ACID 500 MG TAB PO SCH (10:36)
[2018-06-13] MEDS: MULTIPLE VITAMIN TAB PO SCH (10:36)
[2018-06-13 12:12] VITALS: BP 158/86
[2018-06-13] MEDS: LABETALOL HCL 5 MG/ML ML 20ML VIAL IV PRN (13:02)
== END 2018-06-13 14:00 | disposition home or self-care (01) | DRG 199 ==
LOC: ER 11:54 → TELE 11:55 → TELE-WESTW 19:52
PROVIDERS: ADMIT Internal Medicine; ATTEND Internal Medicine
PROC: 30233N1 Transfusion of Nonautologous Red Blood Cells into Peripheral Vein, Percutaneous Approach (ICD-10-PCS; principal; 2018-06-07)
PROC: 5A1D70Z Performance of Urinary Filtration, Intermittent, Less than 6 Hours Per Day (ICD-10-PCS; 2018-06-07)
PROC: 5A1D70Z Performance of Urinary Filtration, Intermittent, Less than 6 Hours Per Day (ICD-10-PCS; 2018-06-09)
PROC: 5A1D70Z Performance of Urinary Filtration, Intermittent, Less than 6 Hours Per Day (ICD-10-PCS; 2018-06-11)
DX: I16.0 Hypertensive urgency (principal); E11.21 Type 2 diabetes mellitus with diabetic nephropathy; E44.0 Moderate protein-calorie malnutrition; E87.2 Acidosis; E11.65 Type 2 diabetes mellitus with hyperglycemia; E83.39 Other disorders of phosphorus metabolism; I12.0 Hypertensive chronic kidney disease with stage 5 chronic kidney disease or end stage renal disease; E83.51 Hypocalcemia; R04.0 Epistaxis; E87.6 Hypokalemia; N18.6 End stage renal disease; T45.515A Adverse effect of anticoagulants, initial encounter; D63.8 Anemia in other chronic diseases classified elsewhere; E11.22 Type 2 diabetes mellitus with diabetic chronic kidney disease; E78.5 Hyperlipidemia, unspecified; D63.1 Anemia in chronic kidney disease; K21.9 Gastro-esophageal reflux disease without esophagitis; Z99.2 Dependence on renal dialysis; Z86.73 Personal history of transient ischemic attack (TIA), and cerebral infarction without residual deficits; Z91.19 Patient's noncompliance with other medical treatment and regimen; Y92.89 Other specified places as the place of occurrence of the external cause
CPT/HCPCS: 36415; 71045; 80048; 80053; 81001; 82306; 82570; 82728; 82962; 83036; 83540; 83550; 83605; 83880; 83970; 84100; 84156; 84300; 84443; 84484; 85025; 85610; 85730; 86803; 86850; 86900; 86901; 86920; 87040; 87086; 87340; 90935; 93005; 96374; 99291; J0696; J0885; J1815; J2405

== ENCOUNTER 2020-12-14 06:12 | Inpatient (IN) | payer MEDICAID ==
[~2020-12-14] VITALS: Ht 162.6 cm; Wt 69.3 kg
[~2020-12-14 06:12] MED LIST changes: -AMOX250C3 PO; +ASPI81CH43 PO; +CHOL20007 PO; +CLAR1TAB21 PO; -CLAR500T PO; +FERR-20 PO; +FURO20TA3 PO; +HYDR-4296 PO; -LABE200T18 PO; +LABE200T7 PO; -NIFE90TA30 PO; +NIFE90TA49 PO; +WARF6TAB2 PO; -WARF6TAB20 PO
[2020-12-14] MEDS ORDERED: SODIUM CHLORIDE 0.9% 1,000 ML IV ONE (06:45)
[2020-12-14 07:18] LABS: Basophils # (auto) 0 10 ^3/uL (0-0.2); Basophils % (auto) 0.3 % (0.0-2.0); Eosinophils # (auto) 0 10 ^3/uL (0-0.8); Hematocrit 25.7 % (41.0-53.0); Lymphocytes # (auto) 0.3 10 ^3/uL (0.4-5.4); Lymphocytes % (auto) 4.2 % (10.0-50.0); Mean Corpuscular Hemoglobin 28.9 pg (28.0-32.0); Mean Corpuscular Volume 82.4 fL (80.0-100.0); Monocytes # (auto) 0.3 10 ^3/uL (0-1.3); Monocytes % (auto) 4.1 % (0.0-12.0); Neutrophils # (auto) 6.3 10 ^3/uL (1.6-8.6); Neutrophils % (auto) 91.4 % (37.0-80.0); Platelet Count (auto) 174 10^3/uL (140-450); Red Blood Cells 3.12 10^6/uL (4.5-5.90); Red Cell Distribution Width 15.8 % (11.8-14.3); White Blood Cell 6.9 10^3/uL (4.4-10.8)
[2020-12-14 07:30] LABS: Albumin 3.6 g/dL (3.4-5.0); Calcium 8.9 mg/dL (8.5-10.1); Magnesium 2.6 mg/dL (1.6-2.6); Potassium 4.2 mmol/L (3.5-5.1)
[2020-12-14 07:36] LABS: Bilirubin, Total 0.6 mg/dL (0.2-1.0); Total Protein 7.9 g/dL (6.4-8.2)
[2020-12-14 07:37] LABS: INR 1.08 (0.9-1.15)
[2020-12-14] MEDS ORDERED: FUROSEMIDE 20 MG/2 ML VIAL IV ONE (08:15)
[2020-12-14] MEDS ORDERED: ACETAMINOPHEN 500 MG TAB PO ONE (08:15)
[2020-12-14] MEDS ORDERED: cefTRIAXone 1GM/50ML D5W 50 ML IV ONE (08:30)
[2020-12-14] MEDS ORDERED: AZITHROMYCIN 500MG/ 250ML 250 ML IV ONE (08:30)
[2020-12-14] MEDS ORDERED: METOPROLOL TARTRATE 1MG/1ML-5ML VIAL IV ONE (12:00)
[2020-12-14] MEDS ORDERED: MORPHINE SULF INJ 2 MG/ML SYRINGE 1ML IV PRN ×2 (12:30)
[2020-12-14] MEDS ORDERED: VANCOMYCIN PER PHARMACY 0 MG IV SCH (12:30)
[2020-12-14] MEDS ORDERED: guaiFENesin-DM 100/10mg/5ml SYR PO PRN (12:30)
[2020-12-14] MEDS ORDERED: NITROGLYCERIN 0.4 MG SL TAB SL PRN (12:30)
[2020-12-14] MEDS ORDERED: ONDANSETRON HCL 4 MG/2 ML VIAL IV PRN (12:30)
[2020-12-14] MEDS ORDERED: HYDROcodone-ACET 5/325MG TAB PO PRN (12:30)
[2020-12-14] MEDS ORDERED: DOCUSATE SOD 100 MG CAP PO PRN (12:30)
[2020-12-14] MEDS ORDERED: ACETAMINOPHEN 500 MG TAB PO PRN (12:30)
[2020-12-14] MEDS ORDERED: ASPirin 81 mg TAB PO ONE (12:30)
[2020-12-14] MEDS: NITROGLYCERIN 0.4MG/HR TOPICAL PATCH TD SCH (13:14)
[2020-12-14] MEDS: PIPERACILLIN-TAZOB 2.25GM 50 ML IV SCH ×2 (13:52→21:28)
[2020-12-14] MEDS ORDERED: VANCOMYCIN 1GM/250ML 250 ML IV ONE (15:00)
[2020-12-14 16:23] LABS: Urine Bacteria FEW /hpf (None Seen); Urine Blood 1+ /uL (Negative); Urine Specific Gravity 1.006 (1.001-1.035); Urine WBC <1 /hpf (0 - 3)
[2020-12-14 16:59] VITALS: BP 131/71
[2020-12-14] MEDS: hydrALAZINE HCL 25 MG TAB PO SCH (21:28)
[2020-12-14] MEDS: ATORVASTATIN 20 MG TAB PO SCH (21:29)
[2020-12-14] MEDS: CARVEDILOL 12.5 MG TAB PO SCH (21:29)
[2020-12-14] MEDS: PANTOPRAZOLE 40 MG TAB PO SCH (21:30)
[2020-12-14 22:28] VITALS: BP 149/77
[2020-12-15 05:18] VITALS: BP 110/55
[2020-12-15] MEDS: PIPERACILLIN-TAZOB 2.25GM 50 ML IV SCH ×3 (05:54→22:11)
[2020-12-15 07:57] LABS: BUN/Creatinine Ratio 6.8; Calcium 7.9 mg/dL (8.5-10.1)
[2020-12-15 09:07] VITALS: BP 129/64
[2020-12-15] MEDS: PANTOPRAZOLE 40 MG TAB PO SCH ×2 (10:00→22:16)
[2020-12-15] MEDS: CARVEDILOL 12.5 MG TAB PO SCH ×2 (10:00→11:02)
[2020-12-15] MEDS: ASPirin 81 mg TAB PO SCH (10:00)
[2020-12-15] MEDS ORDERED: CALCIUM ACETATE 667 MG CAP PO SCH (10:00)
[2020-12-15] MEDS: CALCIUM W/VIT D (600MG/400IU) TAB PO SCH (10:38)
[2020-12-15] MEDS: hydrALAZINE HCL 25 MG TAB PO SCH ×2 (10:41→22:15)
[2020-12-15] MEDS: NITROGLYCERIN 0.4MG/HR TOPICAL PATCH TD SCH (10:42)
[2020-12-15 13:00] VITALS: BP 139/74
[2020-12-15 17:03] VITALS: BP 109/51
[2020-12-15] MEDS: Ensure HIGH Protein Chocolate 8oz Bottle PO SCH (18:00)
[2020-12-15] MEDS: CALCIUM ACETATE 667 MG CAP PO SCH (18:00)
[2020-12-15 22:00] VITALS: BP 141/75
[2020-12-15] MEDS: ATORVASTATIN 20 MG TAB PO SCH (22:15)
[2020-12-16 05:00] VITALS: BP 141/75
[2020-12-16] MEDS: PIPERACILLIN-TAZOB 2.25GM 50 ML IV SCH ×3 (05:36→20:41)
[2020-12-16 07:08] LABS: Basophils # (auto) 0 10 ^3/uL (0-0.2); Eosinophils # (auto) 0.2 10 ^3/uL (0-0.8); Hematocrit 22.4 % (41.0-53.0); Hemoglobin 7.6 g/dL (13.5-17.5); Lymphocytes # (auto) 1.1 10 ^3/uL (0.4-5.4); Neutrophils # (auto) 3.2 10 ^3/uL (1.6-8.6)
[2020-12-16 07:10] LABS: Basophils % (auto) 0.5 % (0.0-2.0); Eosinophils % (auto) 3.2 % (0.0-7.0); Lymphocytes % (auto) 22.5 % (10.0-50.0); Mean Corpuscular Hemoglobin 27.9 pg (28.0-32.0); Mean Corpuscular Volume 81.9 fL (80.0-100.0); Monocytes # (auto) 0.4 10 ^3/uL (0-1.3); Monocytes % (auto) 8.3 % (0.0-12.0); Neutrophils % (auto) 65.5 % (37.0-80.0); Nucleated Red Blood Cells % 0.2 %; Platelet Count (auto) 193 10^3/uL (140-450); Red Blood Cells 2.74 10^6/uL (4.5-5.90); Red Cell Distribution Width 15.2 % (11.8-14.3); White Blood Cell 4.9 10^3/uL (4.4-10.8)
[2020-12-16 07:13] LABS: Potassium 3.7 mmol/L (3.5-5.1)
[2020-12-16 07:23] LABS: Albumin 2.6 g/dL (3.4-5.0); BUN/Creatinine Ratio 6.7; Bilirubin, Total 0.4 mg/dL (0.2-1.0); Calcium 7.6 mg/dL (8.5-10.1); Total Protein 6.4 g/dL (6.4-8.2)
[2020-12-16 09:04] VITALS: BP 144/82
[2020-12-16] MEDS: NITROGLYCERIN 0.4MG/HR TOPICAL PATCH TD SCH (09:57)
[2020-12-16] MEDS: CARVEDILOL 12.5 MG TAB PO SCH ×2 (09:58→13:30)
[2020-12-16] MEDS: CALCIUM ACETATE 667 MG CAP PO SCH ×3 (09:59→18:12)
[2020-12-16] MEDS: CALCIUM W/VIT D (600MG/400IU) TAB PO SCH (09:59)
[2020-12-16] MEDS: hydrALAZINE HCL 25 MG TAB PO SCH ×2 (09:59→22:10)
[2020-12-16] MEDS: PANTOPRAZOLE 40 MG TAB PO SCH ×2 (10:00→22:11)
[2020-12-16] MEDS: ASPirin 81 mg TAB PO SCH (10:00)
[2020-12-16 12:49] VITALS: BP 145/79
[2020-12-16] MEDS ORDERED: APIXABAN 5 MG TAB PO SCH (13:36)
[2020-12-16 15:21] LABS: INR 1.13 (0.9-1.15); Partial Thromboplastin Time 36.4 sec (23.0-31.2)
[2020-12-16 17:00] VITALS: BP 127/67
[2020-12-16] MEDS ORDERED: WARFARIN SODIUM 2.5 MG TAB PO ONE (17:00)
[2020-12-16] MEDS ORDERED: VANCOMYCIN 1GM/250ML 250 ML IV ONE (18:00)
[2020-12-16 18:03] LABS: Hemoglobin 7.3 g/dL (13.5-17.5)
[2020-12-16 18:07] LABS: Hematocrit 21.4 % (41.0-53.0)
[2020-12-16 22:00] VITALS: BP 147/94
[2020-12-16] MEDS: ATORVASTATIN 20 MG TAB PO SCH (22:11)
[2020-12-17] MEDS: PIPERACILLIN-TAZOB 2.25GM 50 ML IV SCH ×3 (04:53→22:27)
[2020-12-17 05:00] VITALS: BP 161/85
[2020-12-17 06:17] LABS: Basophils # (auto) 0 10 ^3/uL (0-0.2); Eosinophils # (auto) 0.2 10 ^3/uL (0-0.8); Lymphocytes # (auto) 1.3 10 ^3/uL (0.4-5.4); Red Blood Cells 2.72 10^6/uL (4.5-5.90)
[2020-12-17 06:20] LABS: Basophils % (auto) 0.8 % (0.0-2.0); Eosinophils % (auto) 4.5 % (0.0-7.0); Hematocrit 22.3 % (41.0-53.0); Hemoglobin 7.7 g/dL (13.5-17.5); Lymphocytes % (auto) 25.7 % (10.0-50.0); Mean Corpuscular Hemoglobin 28.2 pg (28.0-32.0); Mean Corpuscular Hgb Conc. 34.4 g/dL (32.0-36.0); Monocytes # (auto) 0.4 10 ^3/uL (0-1.3); Platelet Count (auto) 221 10^3/uL (140-450); Red Cell Distribution Width 15.4 % (11.8-14.3)
[2020-12-17 06:33] LABS: % Iron Saturation 27.3 % (20-55)
[2020-12-17 06:36] LABS: Albumin 2.6 g/dL (3.4-5.0); Calcium 7.9 mg/dL (8.5-10.1); Potassium 3.9 mmol/L (3.5-5.1)
[2020-12-17 06:42] LABS: BUN/Creatinine Ratio 6.8; Bilirubin, Total 0.3 mg/dL (0.2-1.0); Total Protein 6.4 g/dL (6.4-8.2)
[2020-12-17 06:44] LABS: INR 1.17 (0.9-1.15)
[2020-12-17] MEDS ORDERED: SODIUM CHL 0.9% 1000 ML BAG XX ONE (07:00)
[2020-12-17] MEDS: Ensure HIGH Protein Chocolate 8oz Bottle PO SCH ×4 (08:00→20:10)
[2020-12-17 09:00] VITALS: BP 166/102
[2020-12-17] MEDS: ASPirin 81 mg TAB PO SCH (09:36)
[2020-12-17] MEDS: CALCIUM W/VIT D (600MG/400IU) TAB PO SCH (09:36)
[2020-12-17] MEDS: CALCIUM ACETATE 667 MG CAP PO SCH ×3 (09:37→18:00)
[2020-12-17] MEDS: PANTOPRAZOLE 40 MG TAB PO SCH ×2 (10:38→22:29)
[2020-12-17] MEDS ORDERED: cloNIDine HCL 0.1 MG TAB PO ONE (10:45)
[2020-12-17] MEDS ORDERED: FUROSEMIDE 100 MG/10ML VIAL IV ONE (10:45)
[2020-12-17] MEDS: ENOXAPARIN SOD 80 MG/0.8ML SYRINGE SC SCH (10:45)
[2020-12-17 12:36] VITALS: BP 173/101
[2020-12-17] MEDS: CARVEDILOL 12.5 MG TAB PO SCH ×2 (13:56→22:28)
[2020-12-17] MEDS: NITROGLYCERIN 0.4MG/HR TOPICAL PATCH TD SCH (13:57)
[2020-12-17] MEDS: hydrALAZINE HCL 25 MG TAB PO SCH ×2 (14:01→22:28)
[2020-12-17 16:53] VITALS: BP 145/81
[2020-12-17] MEDS ORDERED: WARFARIN SODIUM 5 MG TAB PO ONE (17:00)
[2020-12-17] MEDS ORDERED: EPOETIN ALFA-EPBX 10,000 UNIT/1ML VIAL SC ONE (21:00)
[2020-12-17 22:00] VITALS: BP 135/77
[2020-12-17] MEDS: ATORVASTATIN 20 MG TAB PO SCH (22:29)
[2020-12-18 05:00] VITALS: BP 129/62
[2020-12-18] MEDS: PIPERACILLIN-TAZOB 2.25GM 50 ML IV SCH (06:13)
[2020-12-18 06:24] LABS: INR 1.42 (0.9-1.15); Partial Thromboplastin Time 35.2 sec (23.0-31.2)
[2020-12-18] MEDS: Ensure HIGH Protein Chocolate 8oz Bottle PO SCH ×3 (08:00→17:50)
[2020-12-18] MEDS: CALCIUM ACETATE 667 MG CAP PO SCH ×3 (08:01→17:49)
[2020-12-18 09:00] VITALS: BP 153/73
[2020-12-18] MEDS: ASPirin 81 mg TAB PO SCH (10:11)
[2020-12-18] MEDS: FUROSEMIDE 100 MG/10ML VIAL IV SCH (10:11)
[2020-12-18] MEDS: CALCIUM W/VIT D (600MG/400IU) TAB PO SCH (10:12)
[2020-12-18] MEDS: CARVEDILOL 12.5 MG TAB PO SCH ×2 (10:12→22:14)
[2020-12-18] MEDS: PANTOPRAZOLE 40 MG TAB PO SCH ×2 (10:12→22:15)
[2020-12-18] MEDS: ENOXAPARIN SOD 80 MG/0.8ML SYRINGE SC SCH (10:12)
[2020-12-18] MEDS: hydrALAZINE HCL 25 MG TAB PO SCH ×2 (10:12→22:13)
[2020-12-18] MEDS: NITROGLYCERIN 0.4MG/HR TOPICAL PATCH TD SCH (10:19)
[2020-12-18 10:28] LABS: Hematocrit 22.3 % (41.0-53.0); Hemoglobin 7.5 g/dL (13.5-17.5)
[2020-12-18 12:54] VITALS: BP 140/71
[2020-12-18 17:00] VITALS: BP 153/79
[2020-12-18] MEDS ORDERED: WARFARIN SODIUM 5 MG TAB PO ONE (17:00)
[2020-12-18] MEDS ORDERED: AMLO-496 PO (17:52)
[2020-12-18] MEDS: ATORVASTATIN 20 MG TAB PO SCH (22:14)
[2020-12-19 05:45] VITALS: BP 128/65
[2020-12-19 06:04] LABS: Basophils # (auto) 0.1 10 ^3/uL (0-0.2); Basophils % (auto) 1.3 % (0.0-2.0); Eosinophils # (auto) 0.3 10 ^3/uL (0-0.8); Eosinophils % (auto) 5.3 % (0.0-7.0); Hematocrit 23.6 % (41.0-53.0); Hemoglobin 8.1 g/dL (13.5-17.5); Lymphocytes # (auto) 1.6 10 ^3/uL (0.4-5.4); Lymphocytes % (auto) 29.3 % (10.0-50.0); Mean Corpuscular Hemoglobin 28.2 pg (28.0-32.0); Mean Corpuscular Hgb Conc. 34.4 g/dL (32.0-36.0); Mean Corpuscular Volume 82.1 fL (80.0-100.0); Monocytes # (auto) 0.3 10 ^3/uL (0-1.3); Monocytes % (auto) 6.1 % (0.0-12.0); Neutrophils # (auto) 3.2 10 ^3/uL (1.6-8.6); Nucleated Red Blood Cells % 0.1 %; Platelet Count (auto) 264 10^3/uL (140-450); Red Blood Cells 2.87 10^6/uL (4.5-5.90); Red Cell Distribution Width 15.6 % (11.8-14.3); White Blood Cell 5.5 10^3/uL (4.4-10.8)
[2020-12-19 06:22] LABS: Potassium 4.3 mmol/L (3.5-5.1)
[2020-12-19 06:24] LABS: INR 1.7 (0.9-1.15)
[2020-12-19 06:32] LABS: BUN/Creatinine Ratio 6.1; Calcium 8.3 mg/dL (8.5-10.1)
[2020-12-19] MEDS: CALCIUM ACETATE 667 MG CAP PO SCH ×3 (07:48→18:26)
[2020-12-19] MEDS: Ensure HIGH Protein Chocolate 8oz Bottle PO SCH ×3 (08:00→18:00)
[2020-12-19] MEDS: hydrALAZINE HCL 25 MG TAB PO SCH ×2 (08:38→21:11)
[2020-12-19] MEDS: CARVEDILOL 12.5 MG TAB PO SCH ×2 (08:38→21:12)
[2020-12-19] MEDS: ASPirin 81 mg TAB PO SCH (08:42)
[2020-12-19 09:00] VITALS: BP 169/103
[2020-12-19] MEDS: PANTOPRAZOLE 40 MG TAB PO SCH ×2 (09:58→21:10)
[2020-12-19] MEDS: CALCIUM W/VIT D (600MG/400IU) TAB PO SCH (09:58)
[2020-12-19] MEDS: ENOXAPARIN SOD 80 MG/0.8ML SYRINGE SC SCH (09:59)
[2020-12-19] MEDS: NITROGLYCERIN 0.4MG/HR TOPICAL PATCH TD SCH (10:14)
[2020-12-19] MEDS: FUROSEMIDE 100 MG/10ML VIAL IV SCH (10:16)
[2020-12-19 13:00] VITALS: BP 152/82
[2020-12-19] MEDS ORDERED: SODIUM CHL 0.9% 1000 ML BAG XX ONE (16:45)
[2020-12-19 17:00] VITALS: BP 202/106
[2020-12-19] MEDS ORDERED: WARFARIN SODIUM 5 MG TAB PO ONE (17:00)
[2020-12-19] MEDS ORDERED: cloNIDine HCL 0.1 MG TAB PO ONE (18:30)
[2020-12-19] MEDS ORDERED: EPOETIN ALFA-EPBX 10,000 UNIT/1ML VIAL SC ONE (21:00)
[2020-12-19] MEDS: ATORVASTATIN 20 MG TAB PO SCH (21:11)
[2020-12-19 22:00] VITALS: BP 157/78
[2020-12-20 05:00] VITALS: BP 160/88
[2020-12-20 07:53] LABS: INR 1.94 (0.9-1.15)
[2020-12-20 08:00] VITALS: BP 177/100
[2020-12-20] MEDS: Ensure HIGH Protein Chocolate 8oz Bottle PO SCH ×3 (08:00→18:00)
[2020-12-20] MEDS: CALCIUM ACETATE 667 MG CAP PO SCH ×3 (08:16→18:03)
[2020-12-20 09:00] VITALS: BP 177/100
[2020-12-20] MEDS: FUROSEMIDE 100 MG/10ML VIAL IV SCH (09:53)
[2020-12-20] MEDS: ASPirin 81 mg TAB PO SCH (09:54)
[2020-12-20] MEDS: PANTOPRAZOLE 40 MG TAB PO SCH (09:56)
[2020-12-20] MEDS: CALCIUM W/VIT D (600MG/400IU) TAB PO SCH (09:56)
[2020-12-20] MEDS: CARVEDILOL 12.5 MG TAB PO SCH (09:56)
[2020-12-20] MEDS: ENOXAPARIN SOD 80 MG/0.8ML SYRINGE SC SCH (09:56)
[2020-12-20] MEDS: hydrALAZINE HCL 25 MG TAB PO SCH (10:03)
[2020-12-20] MEDS: NITROGLYCERIN 0.4MG/HR TOPICAL PATCH TD SCH (10:04)
[2020-12-20] MEDS ORDERED: amLODIPine BESYLATE 5 MG TAB PO SCH (10:15)
[2020-12-20] MEDS ORDERED: hydrALAZINE HCL 25 MG TAB PO SCH (11:45)
[2020-12-20] MEDS ORDERED: CARVEDILOL 12.5 MG TAB PO SCH (12:00)
[2020-12-20 13:00] VITALS: BP 154/99
[2020-12-20 16:44] VITALS: BP 150/89
[2020-12-20 16:54] VITALS: BP 150/89
[2020-12-20] MEDS ORDERED: WARFARIN SODIUM 2.5 MG TAB PO ONE (17:00)
[2020-12-20] MEDS ORDERED: cloNIDine HCL 0.1 MG TAB PO ONE (17:30)
[2020-12-21] MEDS ORDERED: SODIUM CHL 0.9% 1000 ML BAG XX ONE (07:00)
[2020-12-21] MEDS ORDERED: EPOETIN ALFA-EPBX 10,000 UNIT/1ML VIAL SC ONE (21:00)
[2020-12-23] MEDS ORDERED: APIXABAN 5 MG TAB PO SCH (22:00)
== END 2020-12-20 18:50 | disposition home or self-care (01) | DRG 134 ==
LOC: ER 06:12 → TELE-EAST 06:13 → TELE-WESTW 19:32
PROVIDERS: ADMIT Nurse Practitioner Acute Care; ATTEND Internal Medicine
PROC: 5A1D70Z Performance of Urinary Filtration, Intermittent, Less than 6 Hours Per Day (ICD-10-PCS; principal; 2020-12-15)
PROC: 5A1D70Z Performance of Urinary Filtration, Intermittent, Less than 6 Hours Per Day (ICD-10-PCS; 2020-12-17)
PROC: 5A1D70Z Performance of Urinary Filtration, Intermittent, Less than 6 Hours Per Day (ICD-10-PCS; 2020-12-19)
DX: I26.99 Other pulmonary embolism without acute cor pulmonale (principal); I21.4 Non-ST elevation (NSTEMI) myocardial infarction; I50.33 Acute on chronic diastolic (congestive) heart failure; E44.0 Moderate protein-calorie malnutrition; I13.2 Hypertensive heart and chronic kidney disease with heart failure and with stage 5 chronic kidney disease, or end stage renal disease; N18.6 End stage renal disease; N25.81 Secondary hyperparathyroidism of renal origin; I31.3 Pericardial effusion (noninflammatory); E87.1 Hypo-osmolality and hyponatremia; Z20.822 Contact with and (suspected) exposure to COVID-19; D63.1 Anemia in chronic kidney disease; R06.03 Acute respiratory distress; Z79.01 Long term (current) use of anticoagulants; Z79.82 Long term (current) use of aspirin; Z99.2 Dependence on renal dialysis; Z68.26 Body mass index [BMI] 26.0-26.9, adult; Z79.84 Long term (current) use of oral hypoglycemic drugs
CPT/HCPCS: 36415; 71046; 76604; 78582; 80048; 80053; 80202; 81001; 82728; 83540; 83550; 83605; 83735; 83880; 84443; 84484; 85014; 85018; 85025; 85379; 85610; 85730; 87040; 87081; 87426; 90935; 93005; 93306; 93970; 96361; 96365; 96367; 96375; G0378; J0696; J2543

== ENCOUNTER 2024-04-03 14:04 | Emergency (ER) | payer MEDICAID ==
[~2024-04-03] VITALS: Ht 162.6 cm; Wt 65.5 kg
[~2024-04-03 14:04] MED LIST changes: +AMLO1TAB23 PO; -ATO40T PO; -CHOL20007 PO; -CLAR1TAB21 PO; -FERR-20 PO; +FERR325T24 PO; -HYDR-4296 PO; +HYDR25TA88 PO; +LABE200T33 PO; -LABE200T7 PO; -NIFE90TA49 PO; +NIFE90TA75 PO; -OMEP20CA74 PO
[2024-04-03 15:53] VITALS: BP 114/69; PULSE 74; RESP 17; TEMP 98; O2SAT 97
[2024-04-03 17:03] LABS: Basophils # (auto) 0 10 ^3/uL (0-0.2); Basophils % (auto) 0.4 % (0.0-2.0); Eosinophils # (auto) 0.1 10 ^3/uL (0-0.8); Eosinophils % (auto) 2.1 % (0.0-7.0); Hematocrit 36.8 % (41.0-53.0); Hemoglobin 12.1 g/dL (13.5-17.5); Lymphocytes # (auto) 0.7 10 ^3/uL (0.4-5.4); Lymphocytes % (auto) 11.2 % (10.0-50.0); Mean Corpuscular Hemoglobin 29.6 pg (28.0-32.0); Mean Corpuscular Hgb Conc. 32.9 g/dL (32.0-36.0); Mean Corpuscular Volume 89.7 fL (80.0-100.0); Monocytes # (auto) 0.4 10 ^3/uL (0-1.3); Monocytes % (auto) 6.1 % (0.0-12.0); Neutrophils # (auto) 4.8 10 ^3/uL (1.6-8.6); Neutrophils % (auto) 80.2 % (37.0-80.0); Nucleated Red Blood Cells % 0.1 %; Red Cell Distribution Width 15.4 % (11.8-14.3); White Blood Cell 5.9 10^3/uL (4.4-10.8)
[2024-04-03] MEDS ORDERED: CALA1SUS2 EX (17:31)
[2024-04-03] MEDS ORDERED: CEPH500T PO (17:31)
[2024-04-03] MEDS ORDERED: TRIO1TP EX (17:31)
== END 2024-04-03 17:35 | disposition home or self-care (01) ==
LOC: ER 14:04
DX: R21 Rash and other nonspecific skin eruption (principal); I12.0 Hypertensive chronic kidney disease with stage 5 chronic kidney disease or end stage renal disease; N18.6 End stage renal disease; E78.5 Hyperlipidemia, unspecified; Z79.899 Other long term (current) drug therapy
CPT/HCPCS: 36415; 85025

== ENCOUNTER 2025-06-22 12:00 | Emergency (ER) | payer MEDICAID ==
[~2025-06-22] VITALS: Ht 162.6 cm; Wt 60.8 kg
[~2025-06-22 12:00] MED LIST changes: +CALA1SUS2 EX; +CEPH500T PO; +TRIO1TP EX
--- NOTE | 2025-06-22 13:16 | ED.PDOC ---
History of Present Illness HPI Comments This is a 35 year-old male, with a Hx of CKF, HTN, and Hyperlipidemia, who presents to the ED with a chief complaint of abnormal labs. Per sister, patient was seen by PCP yesterday, with a high level of potassium, 5.3, observed. Patient reports being a regular dialysis patient, M, W, and F. Patient has no fu rther complaints at this time and otherwise denies chest pain, N/V/D, fever, chills, dizziness, migraine, or abdominal pain. Chief Complaint: Abnormal LAB's Time Seen by MD: 12:41 Primary Care Provider: DUSTY Reviewed Notes: Nurses Notes, Medications, Allergies Allergies: Coded Allergies: No Known Drug Allergy (Verified Allergy, Unknown, 03/27/22) Home Meds Active Scripts Calamine-Zinc Oxide (Calamine 8-8 %) 1 Susie Susie, 1 APPLIC EX QID for 7 Days, #1 BOTTLE 0 Refills Prov:SHELTON CORREA NP 04/05/24 Cephalexin Monohydrate (Cephalexin) 500 Mg Tab, 1 TAB PO QID for 5 Days, #20 TAB 0 Refills Prov:SHELTON CORREA P[employer] MACHINE OPERATOR 04/05/24 Triamcinolone Acetonide (Triamcinolone Acetonide) 0.1 % Cre, 1 GRAMS EX BID for 7 Days, #60 GRAMS 0 Refills Prov:SHELTON CORREA PIG MACHINE OPERATOR 04/05/24 Minoxidil (Loniten) 2.5 Mg Tb, 5 MG PO BID, #60 Prov:ROBERT WOODWARD MD 01/14/18 Nifedipine (Nifedipine Er) 90 Mg Tab, 1 TAB PO DAILY, #30 TAB 0 Refills Prov:ROBERT WOODWARD MD 01/14/18 Carvedilol (Carvedilol) 25 Mg Tab, 1 TAB PO BID, #60 TAB 0 Refills Prov:ROBERT WOODWARD MD 01/14/18 Labetalol Hcl (Labetalol Hcl) 200 Mg Tb, 300 MG PO Q8HR, #90 TAB Prov:RICHY HEWITT M.D. 12/05/14 Reported Medications Amlodipine Besylate (Amlodipine Besylate) 10 Mg Tab, 1 TAB PO DAILYPRN 12/18/20 Furosemide (Furosemide) 20 Mg Tab, 20 MG PO DAILY for 30 Days, MG 06/07/18 Hydralazine Hcl (Hydralazine Hcl) 25 Mg Tab, 25 MG PO BID for 30 Days, MG 06/07/18 Ferrous Sulfate (Ferrous Sulfate) 325 Mg Tab, 325 MG PO DAILY for 30 Days, MG 06/07/18 Aspirin (Asa) 81 Mg Ch, 81 MG PO DAILY 06/07/18 Warfarin Sodium (Coumadin) 6 Mg Tab, 7 MG PO DAILY, TAB 01/13/18 Omeprazole (Gnp Omeprazole) 20 Mg Tab, 40 MG PO DAILY, TAB 01/13/18 Calcium Acetate (Phosphate Bin (Calcium Acetate) 667 Mg Cap, 600 MG PO DAILY for 30 Days, MG 01/13/18 Pantoprazole Sodium Sesquihydr (Protonix) 40 Mg Tab, 40 MG PO BID, #30 TAB 01/13/18 Atorvastatin Calcium (ATORVASTATIN CALCIUM) 40 Mg Tab, 1 TAB PO DAILY, #30 TAB 5 Refills 01/13/18 Calcium Carbonate-Vitamin D (Calcium 600-D) 1 Tab Tab, 1 TAB PO DAILY, TAB 12/14/17 Information Source: Patient Mode of Arrival: Ambulatory Severity: Moderate Timing: Hours Duration: Since onset Prehospital treatment: None Past Medical History PAST MEDICAL HISTORY: CKF, ESRD, High Lipids, HTN Surgical History: Denies all surgeries Family History Family History: Reviewed,noncontributory to illness Social History Smoker: Non-Smoker Alcohol: Rarely Drugs: Denies Drug Use Lives In: Home Constitutional: reports: others (abnormal labs ); denies: chills, diaphoresis, fatigue, fever, malaise, sweats, weakness EENTM: denies: blurred vision, double vision, ear bleeding, ear discharge, ear drainage, ear pain, ear ringing, eye pain, eye redness, hearing loss, mouth pain, mouth swelling, nasal discharge, nose bleeding, nose congestion, nose pain, photophobia, tearing, throat pain, throat swelling, voice changes, others Respiratory: denies: cough, hemoptysis, orthopnea, SOB at rest, shortness of breath, SOB with excertion, stridor, wheezing, others Cardiovascular: denies: chest pain, dizzy spells, diaphoresis, Dyspnea on exertion, edema, irregular heart beat, left arm pain, lightheadedness, pal pitations, PND, syncope, others Gastrointestinal: denies: abdomen distended, abdominal pain, blood streaked bowels, constipated, diarrhea, dysphagia, difficulty swallowing, hematemesis, melena, nausea, poor appetite, poor fluid intake, rectal bleeding, rectal pain, vomiting, others Genitourinary: denies: burning, dysuria, flank pain, frequency, hematuria, incontinence, penile discharge, penile sore, pain, testicle pain, testicle swelling, urgency, others Neurological: denies: dizziness, fainting, headache, left sided numbness, left sided weakness, numbness, paresthesia, pre-existing deficit, right sided numbness, right sided weakness, seizure, speech problems, tingling, tremors, weakness, others Musculoskeletal: denies: back pain, gout, joint pain, joint swelling, muscle pain, muscle stiffness, neck pain, others Integumetry: denies: bruises, change in color, change in hair/nails, dryness, laceration, lesions, lumps, rash, wounds, others Allergic/Immunocompromised: denies: Difficulty Healing, Frequent Infections, Hives, Itching, others Hematologic/Lymphatic: denies: anemia, blood clots, easy bleeding, easy bru ising, swollen glands, others Endocrine: denies: excessive hunger, excessive sweating, excessive thirst, e xcessive urination, flushing, intolerance to cold, intolerance to heat, unexplained weight gain, unexplained weight loss, others Psychiatric: denies: anxiety, bipolar disorder, depression, hopeless, panic disorder, schizophrenia, sleepless, suicidal, others All Other Systems: Reviewed and Negative Physical Exam General Appearance: Moderate Distress HEENT: Normal ENT Inspection, Pharynx Normal, TMs Normal Neck: Full Range of Motion, Non-Tender, Normal, Normal Inspection Respiratory: Chest Non-Tender, Lungs Clear, No Accessory Muscle Use, No Respiratory Distress, Normal Breath Sounds Cardiovascular: No Edema, No JVD, No Murmur, No Gallop, Normal Peripheral Pulses, Regular Rate/Rhythm Breast Exam: Deferred Gastrointestinal: No Organomegaly, Non Tender, No Pulsatile Mass, Normal Bowel Sounds, Soft Genitalia: Deferred Pelvic: Deferred Rectal: Deferred Extremities: No calf tenderness, Normal capillary refill, Normal inspection, Normal range of motion, Non-tender, No pedal edema Musculoskeletal : Apperance: Normal Neurologic: Alert, pickle maker II-XII nml as Tested, No Motor Deficits, Normal Affect, Normal Mood, No Sensory Deficits Cerebellar Function: Normal Reflexes: Normal Skin: Dry, Normal Color, Warm Peripheral Pulses: 3+ Radial (R), 3+ Radial (L) Lymphatic: No Adenopathy Was a procedure done? Was a procedure done?: No Differential Dx Considerations may include: Chronic kidney disease Electrolyte imbalance X-Ray, Labs, Meds, VS Vital Signs Date Time Temp Pulse Resp B/P (MAP) Pulse Ox O2 Delivery O2 Flow Rate FiO2 06/22/25 14:00 97.7 56 16 110/79 (89) 100 97.7 06/22/25 12:01 97.8 95 20 116/80 96 97.8 Lab Test 06/22/25 13:37 Range/Units White Blood Count 5.5 4.4-10.8 10^3/uL Red Blood Count 5.58 4.5-5.90 10^6/uL Hemoglobin 18.7 H 13.5-17.5 g/dL Hematocrit 55.3 H 41.0-53.0 % Mean Corpuscular Volume 99.1 80.0-100.0 fL Mean Corpuscular Hemoglobin 33.4 H 28.0-32.0 pg Mean Corpuscular Hemoglobin Concent 33.7 32.0-36.0 g/dL Red Cell Distribution Width 18.0 H 11.8-14.3 % Platelet Count 176 140-450 10^3/uL Mean Platelet Volume 10.1 6.9-10.8 fL Neutrophils (%) (Auto) 63.7 37.0-80.0 % Lymphocytes (%) (Auto) 27.3 10.0-50.0 % Monocytes (%) (Auto) 7.2 0.0-12.0 % Eosinophils (%) (Auto) 1.0 0.0-7.0 % Basophils (%) (Auto) 0.8 0.0-2.0 % Neutrophils # (Auto) 3.5 1.6-8.6 10 ^3/uL Lymphocytes # (Auto) 1.5 0.4-5.4 10 ^3/uL Monocytes # (Auto) 0.4 0-1.3 10 ^3/uL Eosinophils # (Auto) 0.1 0-0.8 10 ^3/uL Basophils # (Auto) 0 0-0.2 10 ^3/uL Nucleated Red Blood Cells 0.1 % Sodium Level 139 136-145 mmol/L Potassium Level 4.2 3.5-5.1 mmol/L Chloride Level 97 L 98-107 mmol/L Carbon Dioxide Level 30 20-31 mmol/L Anion Gap 12 5-15 Blood Urea Nitrogen 23 9-23 mg/dL Creatinine 5.80 H 0.700-1.30 mg/dL Glomerular Filtration Rate Calc 12 >90 mL/min BUN/Creatinine Ratio 4.0 L 10.0-20.0 Serum Glucose 103 74-106 mg/dL Calcium Level 9.4 8.7-10.4 mg/dL Patient alert. Came in because abdominal labs. He was dialyzed this morning. Vitals stable. Potassium within normal limits. He is ambulating. No leg swelling. No calf tenderness. Explained to the patient. Was told to follow up with his primary care physician. Was told to come back if there is any problem. Images Reviewed?: Images reviewed and evaluated by me Time of 1ST Reevaluation: 13:40 Reevaluation 1ST: Improved Patient Education/Counseling: Diagnosis, Treatment Family Education/Counseling: Diagnosis, Treatment Medical Screening: No EMC Exist At This Time SEPSIS Sepsis Screen Date sepsis recognized/suspect: Jun 22, 2025 Time Sepsis recognized/suspect: 1202 Recent Procedure: No On Antibiotic Therapy: No Respiratory Rate >20: No Heart Rate >90: Yes Temp<36 C (96.8 F) or >38.3 C: No SBP <90 or MAP <65 mmHG: No New Acute Mental Status Change: No Is the patient on CPAP, BIPAP,: No Vital Signs Date Time Temp Pulse Resp B/P (MAP) Pulse Ox O2 Delivery O2 Flow Rate FiO2 06/22/25 14:00 97.7 56 16 110/79 (89) 100 97.7 06/22/25 12:01 97.8 95 20 116/80 96 97.8 Laboratory Tests Test 06/22/25 13:37 White Blood Count 5.5 10^3/uL (4.4-10.8) Departure 1 Departure Time of Disposition: 16:41 Impression: Primary Impression: End stage renal disease on dialysis Disposition: 01 HOME / SELF CARE / HOMELESS Condition: Good Discharged With: Self Critical Care Note Critical Care Time?: No Stability Stability form required: No Heart Score Heart Score: Heart Score Response (Comments) Value History N/A 0 EKG N/A 0 Age N/A 0 Risk Factors N/A 0 Troponin N/A 0 Total 0 I personally scribed for SHANTHI ANNE MD ([facility]) on 06/22/25 at 13:16. Electronically submitted by Chary Camacho ([facility]). SHANTHI ANNE MD Jun 22, 2025 13:16
[2025-06-22 13:50] LABS: Hematocrit 55.3 % (41.0-53.0); Hemoglobin 18.7 g/dL (13.5-17.5); Mean Corpuscular Hemoglobin 33.4 pg (28.0-32.0); Mean Corpuscular Volume 99.1 fL (80.0-100.0); Nucleated Red Blood Cells % 0.1 %
[2025-06-22 14:00] VITALS: BP 110/79; PULSE 56; RESP 16; TEMP 97.7; O2SAT 100
[2025-06-22 14:00] LABS: Potassium 4.2 mmol/L (3.5-5.1); Sodium 139 mmol/L (136-145)
[2025-06-22 14:01] LABS: Anion Gap 12 (5-15); Carbon Dioxide 30 mmol/L (20-31)
[2025-06-22 14:02] LABS: Calcium 9.4 mg/dL (8.7-10.4)
[2025-06-22 14:06] LABS: Glucose 103 mg/dL (74-106)
[2025-06-22 14:07] LABS: BUN/Creatinine Ratio 4.0 (10.0-20.0); Blood Urea Nitrogen 23 mg/dL (9-23); Chloride 97 mmol/L (98-107)
== END 2025-06-22 14:57 | disposition home or self-care (01) ==
LOC: ER 12:00
DX: I12.0 Hypertensive chronic kidney disease with stage 5 chronic kidney disease or end stage renal disease (principal); N18.6 End stage renal disease; E78.5 Hyperlipidemia, unspecified; F10.90 Alcohol use, unspecified, uncomplicated; Z99.2 Dependence on renal dialysis; Z79.899 Other long term (current) drug therapy; Z79.82 Long term (current) use of aspirin; Z79.01 Long term (current) use of anticoagulants; Y90.9 Presence of alcohol in blood, level not specified
CPT/HCPCS: 36415; 80048; 85025